=== PATIENT | female | born 1955 | race Hispanic/Latino ===

== ENCOUNTER → 2024-07-07 | Outpatient (CLI) | payer MEDICARE ==
[2024-07-07 11:15] LABS: BASOPHILS # (AUTO) 0.01 K/uL (0.00-0.20); BASOPHILS % (AUTO) 0.2 % (0.0-5.0); EOSINOPHILS # (AUTO) 0.07 K/uL (0.00-0.70); EOSINOPHILS % (AUTO) 1.4 % (0.0-8.0); HEMATOCRIT 38.7 % (36-48); IMMATURE GRANULOCYTE ABSOLUTE 0.01 K/uL (0-1); LYMPHOCYTES # (AUTO) 1.2 K/uL (1.0-4.8); LYMPHOCYTES % (AUTO) 25.3 % (21.0-51.0); MEAN CORPUSCULAR HEMOGLOBIN 29.6 pg (27.0-33.0); MEAN CORPUSCULAR HGB CONC 33.6 g/dL (32.0-36.0); MEAN CORPUSCULAR VOLUME 88.2 fL (79-99); MONOCYTES # (AUTO) 0.5 K/uL (0.1-1.0); MONOCYTES % (AUTO) 9.6 % (3.0-13.0); NEUTROPHILS # (AUTO) 3.1 K/uL (1.8-7.7); NEUTROPHILS % (AUTO) 63.3 % (40.0-77.0); PLATELET COUNT (AUTO) 217 K/uL (130-400); RED BLOOD CELL COUNT(AUTO) 4.39 MIL/uL (4.00-5.50); RED CELL DISTRIBUTION WIDTH 14.6 % (11.0-15.5); WHITE BLOOD COUNT (AUTO) 4.9 K/uL (4.8-10.8)
[2024-07-07 11:22] LABS: CREATININE 0.8 mg/dL (0.5-1.0); POTASSIUM 3.9 mmol/L (3.5-5.1)
== END | disposition home or self-care (01) ==
LOC: LAB 10:45
PROVIDERS: ATTEND Urology
DX: R31.29 Other microscopic hematuria (principal)
CPT/HCPCS: 36415; 80048; 85025

== ENCOUNTER → 2024-07-11 | Outpatient (CLI) | payer MEDICARE ==
[~2024-07-11] MED LIST: IOHEXOL 350 MG/ML 100ML INFUS..BTL IV ONE
--- NOTE | 2024-07-11 13:40 | HMCIMG ---
CT UROGRAM (ABD/PEL WWO) REASON: Other microscopic hematuria COMPARISON: TECHNIQUE: Images are obtained from lung bases through the symphysis pubis before, during and after IV contrast. Postcontrast acquisitions were performed at 5, 10 and 15 minutes with maximum pixel intensity projection technique for CT urogram technique. Contrast volume was 100 cc Omnipaque 350. FINDINGS: Lung bases are clear. There are several small cyst in the liver. There are no solid liver lesions.. The liver does not appear enlarged.. Spleen and pancreas appear unremarkable. The gallbladder appears normal as well. There are normal-appearing kidneys. There is no mass, stone or hydronephrosis. Ureters and urinary bladder appear unremarkable. CT urogram images confirm normal findings. Bowel loops appear unremarkable. This includes normal appearance of the appendix There is no evidence of free fluid or intraperitoneal air. There are no focal fluid collections. Aorta and retroperitoneum appear normal as do pelvic soft tissue structures. The anterior abdominal wall is intact. Osseous structures appear unremarkable. IMPRESSION: 1. Normal appearance of the kidneys, ureters and urinary bladder using CT urogram technique. 2. Small cysts in otherwise normal-appearing liver. 3. Remainder of exam is unremarkable. CT was performed with one or more following dose reduction techniques: automated exposure control, adjustment of the mA and kv according to patient's size, or use of a iterative reconstruction technique.
== END | disposition home or self-care (01) ==
LOC: RAH 10:47
PROVIDERS: ATTEND Urology
DX: K76.89 Other specified diseases of liver (principal); R31.29 Other microscopic hematuria
CPT/HCPCS: 74178; Q9967